=== PATIENT | female | born 1985 ===

== ENCOUNTER 2017-01-14 21:21 | Inpatient (IN) | payer MEDICAID ==
[~2017-01-14] VITALS: Ht 165.1 cm; Wt 74.8 kg
[~2017-01-14 21:21] MED LIST: PREN-129 OR
[2017-01-14] MEDS ORDERED: LACTATED RINGER'S 1,000 ML IV SCH (21:32)
[2017-01-14] MEDS ORDERED: LACT. RINGERS/OXYTOCIN 20UNITS 1,000 ML IV SCH (21:32)
[2017-01-14] MEDS ORDERED: NALBUPHINE HCL 10 MG/1ml INJECTION IV PRN (21:45)
[2017-01-14] MEDS ORDERED: DERMOPLAST 60ML BOTTLE TOP PRN (21:45)
[2017-01-14] MEDS ORDERED: PHISODERM TOP SOLN 240ML BTL TOP PRN (21:45)
[2017-01-14] MEDS ORDERED: WITCH HAZEL-GLYCERIN PAD TOP PRN (21:45)
[2017-01-14] MEDS ORDERED: PROMETHAZINE HCL 25 MG/ML 1ML IV PRN (21:45)
[2017-01-14] MEDS ORDERED: LIDOCAINE 2%HCL (LOCAL ANESTH.) INJ 20ML MDV IJ ONE (21:45)
[2017-01-14] MEDS ORDERED: CARBOPROST TROMETHAMINE 250 MCG/1ML VIAL IM PRN (21:45)
[2017-01-14] MEDS ORDERED: METHYLERGONOVINE MALEATE 0.2 MG/ML AMP IM PRN (21:45)
[2017-01-14] MEDS ORDERED: PENICILLIN G POT 5MIL/D5 50ML 50 ML IV ONE ×2 (21:50→22:00)
[2017-01-14 22:02] LABS: Basophils # (auto) 0 uL; Basophils % (auto) 0.4 % (0.0-2.0); Eosinophils # (auto) 0.1 uL; Eosinophils % (auto) 0.6 % (0.0-7.0); Hematocrit 36.9 % (36.0-46.0); Hemoglobin 12.5 g/dL (12.2-16.2); Lymphocytes # (auto) 1.6 uL; Lymphocytes % (auto) 14.8 % (10.0-50.0); Mean Corpuscular Hemoglobin 30.3 pg (28.0-32.0); Mean Corpuscular Volume 89.2 fL (80.0-100.0); Mean Platelet Volume 9.6 fL (7.4-10.4); Monocytes # (auto) 0.7 uL; Monocytes % (auto) 6.2 % (0.0-12.0); Neutrophils # (auto) 8.2 uL; Platelet Count (auto) 168 10^3/uL (140-450); Red Cell Distribution Width 13.6 % (11.6-16.0); White Blood Cell 10.6 10^3/uL (4.4-10.8)
[2017-01-14 22:09] LABS: Urine Bilirubin Negative (Negative); Urine Blood 1+ /uL (Negative); Urine Color Yellow (Yellow); Urine Glucose Normal (Normal); Urine Ketone 2+ (Negative); Urine Mucus FEW (None Seen); Urine Nitrite Negative (Negative); Urine RBC 35 /hpf (0 - 4); Urine Squamous Epithelial Cell MOD /hpf (<5); Urine Urobilinogen Normal (Negative)
[2017-01-14] MEDS ORDERED: LIDOCAINE 2%HCL (LOCAL ANESTH.) INJ 20ML MDV ONE (22:09)
[2017-01-14] MEDS ORDERED: DERMOPLAST 60ML BOTTLE TOP ONE (22:10)
[2017-01-14] MEDS ORDERED: PHISODERM TOP SOLN 240ML BTL TOP ONE (22:10)
[2017-01-14] MEDS ORDERED: METHYLERGONOVINE MALEATE 0.2 MG/ML AMP IM ONE (22:10)
[2017-01-14] MEDS ORDERED: LACT. RINGERS/OXYTOCIN 20UNITS 1,000 ML IV ONE (22:10)
[2017-01-14] MEDS ORDERED: WITCH HAZEL-GLYCERIN PAD TOP ONE (22:10)
[2017-01-14 22:22] LABS: Calcium 8.3 mg/dL (8.5-10.1); Potassium 3.4 mmol/L (3.5-5.1)
[2017-01-14 22:23] LABS: INR 0.92 (0.9-1.15); Partial Thromboplastin Time 28.4 sec (22.64-33.71); Prothrombin Time 9.5 sec (9.37-12.3)
[2017-01-14 22:24] LABS: Bilirubin, Total 0.4 mg/dL (0.2-1.0); Total Protein 7.2 g/dL (6.4-8.2)
[2017-01-14] MEDS ORDERED: LACT. RINGERS/OXYTOCIN 20UNITS 500 ML IV ONE (23:08)
[2017-01-14] MEDS ORDERED: IBUPROFEN 600 MG TAB PO PRN (23:15)
[2017-01-14] MEDS ORDERED: IBUPROFEN 600 MG TAB PO ONE (23:17)
[2017-01-15] MEDS: ACETAMINOPHEN 325 MG TAB PO PRN (01:48)
[2017-01-15] MEDS ORDERED: PENICILLIN G POTASSIUM 2,500,000 UNITS in D5W 5% 50 ML IV SCH (02:00)
[2017-01-15 04:00] VITALS: BP 120/78
[2017-01-15] MEDS: IBUPROFEN 600 MG TAB PO PRN ×3 (05:06→15:34)
[2017-01-15 08:12] VITALS: BP 108/71
[2017-01-15 12:19] VITALS: BP 107/61
[2017-01-15 15:44] VITALS: BP 118/77
[2017-01-15 20:00] VITALS: BP 113/76
[2017-01-16 00:06] VITALS: BP 126/80
[2017-01-16] MEDS: IBUPROFEN 600 MG TAB PO PRN (00:11)
[2017-01-16 03:52] VITALS: BP 128/78
[2017-01-16] MEDS: ACETAMINOPHEN 325 MG TAB PO PRN (06:51)
[2017-01-16 07:27] VITALS: BP 113/74
== END 2017-01-16 12:05 | disposition home or self-care (01) | DRG 560 ==
LOC: EDUNIT# 21:21 → LDRP 21:21 → OBSVTOIN 21:21 → LDRP 01-15 09:32
PROVIDERS: ADMIT Obstetrics & Gynecology; ATTEND Obstetrics & Gynecology
PROC: 10E0XZZ Delivery of Products of Conception, External Approach (ICD-10-PCS; principal; 2017-01-14)
DX: O99.824 Streptococcus B carrier state complicating childbirth (principal); O77.0 Labor and delivery complicated by meconium in amniotic fluid; Z37.0 Single live birth; Z3A.37 37 weeks gestation of pregnancy
CPT/HCPCS: 36415; 59025; 59409; 80053; 81001; 81002; 85025; 85610; 85730; 86850; 86900; 86901; 96365; 96366; G0378; G0434; J2540; J2590; J7060